=== PATIENT | male | born 1985 | race Caucasian/White ===

== ENCOUNTER 2021-06-28 10:54 | Inpatient (IN) | payer MEDICAID, OTHER ==
[~2021-06-28] VITALS: Ht 170.2 cm; Wt 78.9 kg
[2021-06-28 11:35] LABS: COVID AG,FIA SOURCE NASOPHARYNGEAL
[2021-06-28 11:40] LABS: BASOPHILS % (AUTO) 1.3 % (0.0-2.0); EOSINOPHILS % (AUTO) 2.5 % (1.0-6.0); HEMATOCRIT 44.4 % (41-53); HEMOGLOBIN 15.4 g/dL (13.5-17.5); LYMPHOCYTES # (AUTO) 0.9 K/uL (1.0-4.8); LYMPHOCYTES % (AUTO) 15.8 % (22.0-44.0); MEAN CORPUSCULAR HEMOGLOBIN 30.4 pg (26.0-34.0); MEAN CORPUSCULAR HGB CONC 34.7 G/dL (31.0-37.0); MEAN CORPUSCULAR VOLUME 88 fL (80-100); MONOCYTES # (AUTO) 0.7 K/uL (0.1-1.0); MONOCYTES % (AUTO) 11.4 % (2.0-9.0); NEUTROPHILS # (AUTO) 4.1 K/uL (1.8-7.7); PLATELET COUNT (AUTO) 295 K/uL (150-450); RED BLOOD CELL COUNT(AUTO) 5.06 MIL/uL (4.50-5.90); RED CELL DISTRIBUTION WIDTH 12.9 % (11.5-14.5)
[2021-06-28 11:49] LABS: AMPHET/METH SCREEN,URINE NEGATIVE (NEGATIVE); BARBITURATE SCREEN, URINE NEGATIVE (NEGATIVE); BENZODIAZEPINES SCREEN,URINE NEGATIVE (NEGATIVE); CANNABINOID SCREEN,URINE POSITIVE (NEGATIVE); COCAINE SCREEN,URINE NEGATIVE (NEGATIVE); METHADONE SCREEN, URINE NEGATIVE (NEGATIVE); OPIATE SCREEN,URINE NEGATIVE (NEGATIVE)
[2021-06-28 11:50] LABS: PHENCYCLIDINE SCREEN,URINE NEGATIVE (NEGATIVE)
[2021-06-28 11:56] LABS: ANION GAP 12 mmol/L (8-16); CALCIUM, TOTAL 9.6 mg/dL (8.8-10.5); CARBON DIOXIDE 23 mmol/L (22-29); CHLORIDE 103 mmol/L (98-107); CREATININE 0.85 mg/dL (0.60-1.30); GLOMERULAR FILTR. RATE CALC > 60 mL/min (>60); GLUCOSE,RANDOM 85 mg/dL (70-110); POTASSIUM 3.5 mmol/L (3.5-5.1); SODIUM SERUM 138 mmol/L (136-145); UREA NITROGEN, BLOOD 12 mg/dL (7-18)
[2021-06-28] MEDS ORDERED: ZOLPIDEM TARTRATE 10 MG TABLET PO PRN (12:00)
[2021-06-28 12:05] LABS: ALANINE AMINOTRANSFERASE 28 U/L (12-78); ALBUMIN 4.4 g/dL (3.4-5.0); ALKALINE PHOSPHATASE 74 U/L (46-116); ASPARTATE AMINOTRANSFERASE 19 U/L (15-37); BILIRUBIN,TOTAL 1.1 mg/dL (0.1-1.0); TOTAL PROTEIN, SERUM 8.2 g/dL (6.4-8.2)
[2021-06-28] MEDS ORDERED: LORazepam 1 MG TABLET PO ONE (12:45)
[2021-06-28 13:05] LABS: APPEARANCE,URINE CLEAR (CLEAR); BILIRUBIN,URINE NEGATIVE (NEGATIVE); GLUCOSE, URINE (UA) NEGATIVE (NEGATIVE); KETONES,URINE 15 mg/dL (NEGATIVE); LEUKOCYTE ESTERASE ,URINE NEGATIVE (NEGATIVE); NITRATE,URINE NEGATIVE (NEGATIVE); OCCULT BLOOD,URINE NEGATIVE (NEGATIVE); PROTEIN,URINE NEGATIVE (NEGATIVE); UROBILINOGEN,URINE 0.2 mg/dL (<=1.0)
[2021-06-28] MEDS: LORazepam 2 MG TABLET PO PRN (18:07)
[2021-06-28] MEDS: HALOPERIDOL 5 MG TABLET PO PRN (20:00)
[2021-06-28] MEDS ORDERED: INFLUENZA VIRUS VACCINE QVS 2021-22 (6MO+)/PF 60 MCG/0.5 ML SYRINGE IM. ONE (20:30)
[2021-06-28] MEDS ORDERED: PNEUMOCOCCAL VACCINE POLYVALENT 0.5 ML VIAL [PPSV23] IM. ONE (20:30)
[2021-06-28 20:31] VITALS: BP 148/74
[2021-06-29 03:09] VITALS: BP 128/79
[2021-06-29] MEDS ORDERED: BENZOCAINE/MENTHOL LOZENGE PO PRN (05:45)
[2021-06-29] MEDS ORDERED: PETROLATUM,WHITE 28 GM JELLY TP PRN (05:45)
[2021-06-29] MEDS ORDERED: ONDANSETRON HCL 4 MG TABLET PO PRN (05:45)
[2021-06-29] MEDS ORDERED: OMEPRAZOLE 20 MG CAPSULE PO PRN (05:45)
[2021-06-29] MEDS ORDERED: CloNIDine HCL 0.1 MG TABLET PO PRN (05:45)
[2021-06-29] MEDS ORDERED: IBUPROFEN 600 MG TABLET PO PRN (05:45)
[2021-06-29] MEDS ORDERED: MAG HYDROX/AL HYDROX/SIMETH ES 30 ML SUSPENSION UDCUP PO PRN (05:45)
[2021-06-29] MEDS ORDERED: DOCUSATE SODIUM 100 MG CAPSULE PO PRN (05:45)
[2021-06-29] MEDS ORDERED: LOPERAMIDE HCL 2 MG CAPSULE PO PRN (05:45)
[2021-06-29] MEDS ORDERED: MAGNESIUM HYDROXIDE SUSPENSION 30 ML UDCUP PO PRN (05:45)
[2021-06-29] MEDS ORDERED: ALBUTEROL SULFATE HFA 90 MCG/PUFF 8 GM INHALER IH PRN (05:45)
[2021-06-29] MEDS ORDERED: BACITRACIN 28 GM OINTMENT TP PRN (05:45)
[2021-06-29] MEDS ORDERED: ACETAMINOPHEN 325 MG TABLET PO PRN (05:45)
[2021-06-29 08:11] LABS: HEMOGLOBIN A1C 5.2 % (3.8-5.6)
[2021-06-29 08:24] LABS: CHOL/HDL RATIO 6.9 (4.2-7.3); FREE T4 (FREE THYROXINE) 0.96 ng/dL (0.76-1.46); THYROID STIMULATING HORMONE 0.56 uIU/mL (0.36-3.74)
[2021-06-29 08:39] VITALS: BP 126/65
[2021-06-29] MEDS: LORazepam 2 MG TABLET PO PRN ×2 (09:07→19:33)
[2021-06-29] MEDS: GABAPENTIN 300 MG CAPSULE PO SCH ×2 (09:07→16:54)
[2021-06-29] MEDS: ESCITALOPRAM OXALATE 10 MG TABLET PO SCH (09:09)
[2021-06-29] MEDS: HALOPERIDOL 5 MG TABLET PO PRN ×2 (09:33→19:33)
[2021-06-29 16:19] VITALS: BP 125/77
[2021-06-29] MEDS: TraZODone HCL 50 MG TABLET PO SCH (20:21)
[2021-06-30 04:16] VITALS: BP 128/78
[2021-06-30] MEDS: LORazepam 2 MG TABLET PO PRN ×2 (08:11→16:40)
[2021-06-30] MEDS: HALOPERIDOL 5 MG TABLET PO PRN ×2 (08:11→16:40)
[2021-06-30] MEDS: ESCITALOPRAM OXALATE 10 MG TABLET PO SCH (08:11)
[2021-06-30] MEDS: GABAPENTIN 300 MG CAPSULE PO SCH ×2 (08:11→16:40)
[2021-06-30 08:44] VITALS: BP 132/86
[2021-06-30 16:21] VITALS: BP 132/80
[2021-06-30] MEDS: NICOTINE 21 MG/24 HOUR PATCH TD SCH (17:26)
[2021-06-30] MEDS: TraZODone HCL 50 MG TABLET PO SCH (20:09)
[2021-07-01 01:22] VITALS: BP 127/75
[2021-07-01] MEDS: ESCITALOPRAM OXALATE 10 MG TABLET PO SCH (08:11)
[2021-07-01] MEDS: NICOTINE 21 MG/24 HOUR PATCH TD SCH (08:11)
[2021-07-01] MEDS: GABAPENTIN 300 MG CAPSULE PO SCH (08:11)
[2021-07-01] MEDS: LORazepam 2 MG TABLET PO PRN (08:11)
[2021-07-01 08:32] VITALS: BP 127/73
[2021-07-01] MEDS: HALOPERIDOL 5 MG TABLET PO PRN (09:16)
[2021-07-01] MEDS ORDERED: ESCI-8 PO (12:10)
[2021-07-01] MEDS ORDERED: TRAZ-252 PO ×2 (12:10→12:35)
[2021-07-01] MEDS ORDERED: GABA-1181 PO ×2 (12:11→12:35)
[2021-07-01] MEDS ORDERED: ESCI10 PO (12:35)
== END 2021-07-01 14:00 | disposition home or self-care (01) | DRG 750 ==
LOC: EMS 11:00 → B2S 14:17
PROVIDERS: ADMIT Psychiatry & Neurology Psychiatry; ATTEND Psychiatry & Neurology Psychiatry
DX: F25.9 Schizoaffective disorder, unspecified (principal); F29 Unspecified psychosis not due to a substance or known physiological condition; E78.5 Hyperlipidemia, unspecified; F15.10 Other stimulant abuse, uncomplicated; F10.10 Alcohol abuse, uncomplicated; F41.9 Anxiety disorder, unspecified; Y90.9 Presence of alcohol in blood, level not specified; I10 Essential (primary) hypertension; F17.210 Nicotine dependence, cigarettes, uncomplicated; F19.10 Other psychoactive substance abuse, uncomplicated; G47.00 Insomnia, unspecified; K59.00 Constipation, unspecified; Z20.822 Contact with and (suspected) exposure to COVID-19
CPT/HCPCS: 80053; 80061; 81003; 83036; 84439; 84443; 85025; 99285; G0480